=== PATIENT | male | born 1960 | race Caucasian/White ===

== ENCOUNTER → 2017-08-07 | Outpatient (CLI) | payer BC ==
[~2017-08-07] MED LIST: LISI-170 PO; LISI1TAB5 PO
[2017-08-07 12:01] LABS: ASPARTATE AMINO TRANSFERASE 23 U/L (15-37); BLOOD UREA NITROGEN 11 mg/dL (7-18)
== END ==
LOC: STAR 10:20
PROVIDERS: ATTEND Surgery
DX: Z01.818 Encounter for other preprocedural examination (principal); K40.20 Bilateral inguinal hernia, without obstruction or gangrene, not specified as recurrent
CPT/HCPCS: 36415; 80053

== ENCOUNTER 2017-08-20 05:46 | Day surgery (SDC) | payer BC ==
[~2017-08-20] VITALS: Ht 180.3 cm; Wt 104.6 kg
[2017-08-20] MEDS ORDERED: LACTATED RINGERS 1,000 ML IV SCH (06:12)
[2017-08-20 06:15] VITALS: BP 173/96
[2017-08-20] MEDS ORDERED: FENTANYL PF 100 MCG/2ML ONE ×4 (06:46→08:36)
[2017-08-20] MEDS ORDERED: FENTANYL PF 250 MCG/5ML ONE (06:46)
[2017-08-20] MEDS ORDERED: MIDAZOLAM 1 MG/ML, 2ML ONE ×2 (06:46)
[2017-08-20] MEDS ORDERED: BUPIVACAINE/PF 0.5% ONE (06:58)
[2017-08-20] MEDS ORDERED: EPINEPHRINE 1 MG/ML, 1ML ONE (06:59)
[2017-08-20] MEDS ORDERED: ONDANSETRON 2MG/ML, 2ML ONE (07:13)
[2017-08-20] MEDS ORDERED: PROPOFOL 10 MG/ML, 20ML ONE (07:13)
[2017-08-20] MEDS ORDERED: ROCURONIUM 10 MG/ML ONE (07:13)
[2017-08-20] MEDS ORDERED: DEXAMETHASONE 4 MG/ML, 1ML ONE (07:13)
[2017-08-20] MEDS ORDERED: CEFOTETAN 2 GM ONE (07:13)
[2017-08-20] MEDS ORDERED: PHENYLEPHRINE 10 MG/ML ONE (07:13)
[2017-08-20] MEDS ORDERED: KETOROLAC 30 MG/1 ML ONE (07:13)
[2017-08-20] MEDS ORDERED: BUPIVACAINE/PF-EPI 0.5% 1:200K IM ONE (07:25)
[2017-08-20] MEDS ORDERED: KETAMINE 10 MG/ML, 20ML ONE (07:43)
[2017-08-20] MEDS ORDERED: MEPERIDINE/PF 25MG/0.5ML IVPush PRN (08:00)
[2017-08-20] MEDS ORDERED: LABETALOL 5MG/ML, 20ML IV PRN (08:00)
[2017-08-20] MEDS ORDERED: hydrALAzine 20 MG/ML, 1ML IV PRN (08:00)
[2017-08-20] MEDS ORDERED: OXYcodone 5 MG/5 ML ORAL.SOL UDC PO PRN (08:00)
[2017-08-20] MEDS ORDERED: PROMETHAZINE 25 MG/ML, 1ML IV PRN (08:00)
[2017-08-20] MEDS ORDERED: HYDROmorphone 1 MG/ML, 1ML IV PRN (08:00)
[2017-08-20] MEDS ORDERED: ONDANSETRON 2MG/ML, 2ML IVPush PRN (08:00)
[2017-08-20] MEDS ORDERED: ACETAMINOPHEN 325 MG TABLET PO PRN (08:00)
[2017-08-20] MEDS ORDERED: ACETAMINOPHEN 650 MG/20.3 ML UDC ONE (08:36)
[2017-08-20] MEDS ORDERED: ACETAMINOPHEN 325 MG TABLET ONE (08:36)
[2017-08-20] MEDS ORDERED: OXYcodone 5 MG/5 ML ORAL.SOL UDC ONE (08:37)
[2017-08-20] MEDS: FENTANYL PF 100 MCG/2ML IV PRN ×3 (08:41→09:13)
== END 2017-08-20 12:45 ==
LOC: OUT 05:46
PROVIDERS: ATTEND Surgery
DX: K40.20 Bilateral inguinal hernia, without obstruction or gangrene, not specified as recurrent (principal); E66.9 Obesity, unspecified; I10 Essential (primary) hypertension; Z88.2 Allergy status to sulfonamides; Z88.1 Allergy status to other antibiotic agents; E78.5 Hyperlipidemia, unspecified; E11.9 Type 2 diabetes mellitus without complications; Z79.82 Long term (current) use of aspirin; Z79.84 Long term (current) use of oral hypoglycemic drugs
CPT/HCPCS: 49650; C1781; J0171; J1100; J1885; J2250; J2370; J2405; J2704; J3010; J3490; J7120; S2900; S0074